=== PATIENT | female | born 1975 | race Caucasian/White ===

== ENCOUNTER 2021-06-15 02:35 | Emergency (ER) | payer OTHER ==
[~2021-06-15] VITALS: Ht 162.6 cm; Wt 72.6 kg
--- OUTSIDE RECORDS SUMMARY | 2021-06-15 02:38 | XMS ---
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 [facility] has no Care Guidelines for this patient. Marty VISIT COUNT (12 MO.) 1 CARLOS Figueroa TOTAL 1 NOTE: Visits indicate total known visits. ED/C VISIT TRACKING (12 MO.) 06/15/2021 02:36 [facility] [place] TYPE: Emergency COMPLAINT: - HEADACHE INPATIENT VISIT TRACKING (12 MO.) No inpatient visits to display in this time frame [id number]
[2021-06-15] MEDS ORDERED: NEURONTIN100 MG PO (02:47)
== END 2021-06-15 04:21 | disposition home or self-care (01) ==
LOC: ED 02:35
DX: R51.9 Headache, unspecified (principal)
CPT/HCPCS: 96374; 96375; 99283-25; J1200; J1885; J2765; J7030